=== PATIENT | female | born 1970 | race Caucasian/White ===

== ENCOUNTER 2016-09-01 13:49 | Emergency (ER) | payer OTHER ==
[~2016-09-01] VITALS: Ht 170.2 cm; Wt 72.6 kg
[2016-09-01] MEDS ORDERED: ASPI1TAB PO (14:10)
[2016-09-01] MEDS ORDERED: MULT1TAB18 PO (14:10)
--- NOTE | 2016-09-01 14:46 | REP ---
Clinical: Trauma. Technique: AP, lateral views of the right tibia / fibula. Findings: The osseous structures and joint spaces are intact and normal. There is no evidence for acute fracture or dislocation. Surrounding soft tissues are unremarkable. No subcutaneous emphysema or radiodense foreign body. Impression: Normal examination. No acute fracture or dislocation. Signed by Salvatore Vasquez MD 09/01/2016 02:37 P
--- NOTE | 2016-09-01 14:47 | REP ---
Clinical: Trauma. Technique: AP, lateral, bilateral oblique views of the right foot. Findings: The osseous structures and joint spaces are intact and normal. There is no evidence for acute fracture or dislocation. Surrounding soft tissues are unremarkable. No subcutaneous emphysema or radiodense foreign body. Impression: Normal examination. No acute fracture or dislocation. Signed by Salvatore Vasquez MD 09/01/2016 02:39 P
[2016-09-01 15:05] VITALS: BP 111/66
== END 2016-09-01 15:13 | disposition home or self-care (01) ==
LOC: M ED 14:25
DX: S93.401A Sprain of unspecified ligament of right ankle, initial encounter (principal); X58.XXXA Exposure to other specified factors, initial encounter; Y92.009 Unspecified place in unspecified non-institutional (private) residence as the place of occurrence of the external cause; Y93.02 Activity, running; Y99.8 Other external cause status; Z88.5 Allergy status to narcotic agent; Z88.8 Allergy status to other drugs, medicaments and biological substances; Z91.040 Latex allergy status; Z79.82 Long term (current) use of aspirin